=== PATIENT | female | born 1990 | race Caucasian/White ===

== ENCOUNTER → 2017-03-17 | Outpatient (CLI) | payer OTHER ==
[~2017-03-17] MED LIST: CHLO10 PO; FOLI1 PO; HYDR10SO PO; PANT40IN3 PO; PERC5TAB12 PO; POLY119S PO; PRENTAB14 PO; THIA100T PO; ZOFR4TAB3 PO
== END ==
LOC: HPND 14:08
PROVIDERS: ATTEND Family Medicine
DX: O35.1XX0 Maternal care for (suspected) chromosomal abnormality in fetus, not applicable or unspecified (principal); O26.842 Uterine size-date discrepancy, second trimester; Z3A.19 19 weeks gestation of pregnancy
CPT/HCPCS: 76811

== ENCOUNTER → 2017-04-20 | Outpatient (CLI) | payer OTHER ==
[~2017-04-20] MED LIST changes: -CHLO10 PO; -FOLI1 PO; -HYDR10SO PO; -PANT40IN3 PO; -PERC5TAB12 PO; -POLY119S PO; -THIA100T PO; -ZOFR4TAB3 PO
== END ==
LOC: HPND 13:58
PROVIDERS: ATTEND Family Medicine
DX: O26.849 Uterine size-date discrepancy, unspecified trimester (principal); O35.1XX0 Maternal care for (suspected) chromosomal abnormality in fetus, not applicable or unspecified; Z3A.00 Weeks of gestation of pregnancy not specified
CPT/HCPCS: 76816